=== PATIENT | male | born 1950 | race Caucasian/White ===

== ENCOUNTER 2016-09-08 14:01 | Emergency (ER) | payer OTHER, BC ==
[~2016-09-08] VITALS: Ht 177.8 cm; Wt 99.0 kg
[2016-09-08 14:20] VITALS: TEMP 37.1; Ht 177.8 cm; Wt 99.0 kg
--- NOTE | 2016-09-08 15:05 | DIAGNOSTIC IMAGING REPORT ---
CHEST ONE VIEW PORTABLE CLINICAL HISTORY: sob dyspnea COMPARISON STUDY: No previous studies for comparison. FINDINGS: Mild bibasilar atelectasis. Upper lungs are considered clear. No evidence for cardiac enlargement. IMPRESSION: Mild bibasilar atelectasis. Otherwise negative chest Electronically signed by: Guanako Barton M.D. 09/08/2016 3:04 PM Dictated Date/Time: 09/08/2016 3:03 PM
[2016-09-08 15:08] LABS: COMPLETE YES; EOS % 0.2 %; HEMATOCRIT 41.6 % (42-52); IG% 0.2 %; LYMPH % 5.1 %; LYMPH ABS # 0.34 K/uL (1.2-3.4); MEAN CELL VOLUME 86.8 fL (80-100); MEAN CORPUSCULAR HEMOGLOBIN 29.6 pg (25-34); MEAN CORPUSCULAR HGB CONC 34.1 g/dl (32-36); MEAN PLATELET VOLUME 10.5 fL (7.4-10.4); MONO % 1.4 %; NEUT % 93.1 %; PLATELET COUNT 157 K/uL (130-400); RED BLOOD COUNT 4.79 M/uL (4.7-6.1); WHITE BLOOD COUNT 6.63 K/uL (4.8-10.8)
[2016-09-08] MEDS ORDERED: SIMV40TA2 PO (15:16)
[2016-09-08] MEDS ORDERED: MULT-513 PO (15:16)
[2016-09-08 15:18] LABS: INR 1.1 (0.9-1.1); PARTIAL THROMBOPLASTIN RATIO 1.3; PROTHROMBIN TIME (PATIENT) 11.5 SECONDS (9.0-12.0)
[2016-09-08 15:26] LABS: BUN/CREATININE RATIO 13.5 (10-20); CALCIUM 7.7 mg/dl (8.5-10.1); CREATININE 0.91 mg/dl (0.60-1.40); POTASSIUM 4.5 mmol/L (3.5-5.1)
[2016-09-08 15:28] LABS: ALB/GLOB RATIO 1.3 (0.9-2)
[2016-09-08 15:38] VITALS: O2SAT 95
[2016-09-08] MEDS ORDERED: OPTIRAY 320 IV PRN (16:15)
--- NOTE | 2016-09-08 16:17 | DIAGNOSTIC IMAGING REPORT ---
CT ANGIOGRAM OF THE CHEST CLINICAL HISTORY: Chest pain. Recent surgical history. COMPARISON STUDY: Chest x-ray dated 09/06/2016 TECHNIQUE: Following the IV administration of 93 mL of Optiray-320, CT angiogram of the thorax was performed from the thoracic inlet to the lung bases utilizing the pulmonary embolus protocol. Images are reviewed in the axial, sagittal, and coronal planes. IV contrast was administered without complication. MIP imaging was performed. CT DOSE: 553.31 mGy.cm FINDINGS: No pathologically enlarged axillary mediastinal or hilar lymph nodes were visualized. There was no evidence of thoracic aortic dilatation. There were no pulmonary artery filling defects to indicate acute pulmonary embolism. No pleural effusions are visualized. There is extensive bilateral lower lobe atelectasis/consolidation. There are air bubbles in the region of the right shoulder, presumably related to recent surgery. IMPRESSION: 1. No CT evidence of acute pulmonary embolism 2. Low lung volumes with moderately extensive bilateral lower lobe atelectasis/consolidation 3. Air bubbles in the right shoulder region, likely postsurgical. Electronically signed by: Edgar Rowe M.D. 09/08/2016 4:16 PM Dictated Date/Time: 09/08/2016 4:12 PM
[2016-09-08] MEDS ORDERED: PERCOCET HOME PACK PO ONE (18:45)
[2016-09-08] MEDS ORDERED: ONDANSETRON HOME PACK 4MG OD TAB PO ONE (18:45)
--- NOTE | 2016-09-08 18:46 | EMERGENCY ROOM VISIT NOTE ---
History Report prepared by Antonio: Leida Torres Under the Supervision of: Dr. Anjum Manzano M.D. First contact with patient: 14:49 Chief Complaint: SHORTNESS OF BREATH Stated Complaint: LOW SPO2 Nursing Triage Summary: Pt arrives ALS for evaluation of sudden onset of right sided heaviness, sob after receiving nerve block to right shoulder, pt taken into OR. SOB continues pt brought from [facility] to [facility]. History of Present Illness The patient is a 65 year old male who presents to the Emergency Room with complaints of persistent shortness of breath starting earlier today. The patient was getting surgery on his shoulder at [facility] when prior to the procedure, he began to feel short of breath. After the surgery, the patient was found to by hypoxic and sent to the ED. The patient denies having any chest pain, abdominal pain, or having any swelling in his legs. He denies any history of lung problems, kidney problems, or recent accidents or falls. He is a former smoker. He reports that he had a long car trip recently. Source of History: patient Onset: earlier today Position: other (global) Quality: other (SOB) Timing: other (persistent) Associated Symptoms: No abdominal pain, No chest pain Note: Pt denies swelling in the legs. Review of Systems See HPI for pertinent positives & negatives. A total of 10 systems reviewed and were otherwise negative. Past Medical & Surgical Surgical Problems: (1) History of shoulder surgery Family History Patient reports no known family medical history. Social History Smoking Status: Former Smoker Marital Status: Housing Status: lives with family Occupation Status: retired Current/Historical Medications Scheduled Multivitamins/Minerals (Mvi With Minerals), 1 TAB PO DAILY Simvastatin (Zocor), 40 MG PO QPM Allergies Coded Allergies: No Known Allergies (Verified , 08/02/02) Physical Exam Vital Signs Date Time Temp Pulse Resp B/P Pulse Ox O2 Delivery O2 Flow Rate FiO2 09/08/16 19:05 77 18 142/92 90 09/08/16 18:00 78 18 132/68 91 Room Air 09/08/16 16:15 87 Room Air 09/08/16 16:15 84 22 120/72 87 09/08/16 15:38 95 Nasal Cannula 2.0 09/08/16 14:22 Nasal Cannula 2.0 09/08/16 14:20 37.1 80 20 133/72 91 Room Air 09/08/16 14:14 77 Physical Exam GENERAL: Patient is well appearing and in minimal distress. HEENT: No acute trauma, normocephalic atraumatic, mucous membranes moist, no nasal congestion, no scleral icterus. NECK: No stridor, no adenopathy, no meningismus, trachea is midline. LUNGS: No dyspnea. Clear to auscultation and equal bilaterally. No wheeze, no rhonchi. HEART: Regular rate and rhythm. No murmurs, rubs, gallops appreciated. ABDOMEN: Soft, nontender, bowel sounds positive, no masses appreciated, no peritonitis. BACK: No midline tenderness, no CVA tenderness EXTREMITIES: Right arm in sling, heavily bandaged right shoulder with Betadine on surrounding skin, no cyanosis. NEUROLOGIC: Alert and oriented, no acute motor deficits, no focal weakness, cranial nerves grossly intact. Mild sensation in distal right hand. SKIN: No rash, no jaundice, no diaphoresis. Medical Decision & Procedures ER Provider Diagnostic Interpretation: X ray results are stated below per my interpretation and the radiologist's interpretation. Radiology results and stated below per my review and radiologist interpretation: CHEST ONE VIEW PORTABLE CLINICAL HISTORY: sob dyspnea COMPARISON STUDY: No previous studies for comparison. FINDINGS: Mild bibasilar atelectasis. Upper lungs are considered clear. No evidence for cardiac enlargement. IMPRESSION: Mild bibasilar atelectasis. Otherwise negative chest Electronically signed by: Guanako Barton M.D. 09/08/2016 3:04 PM Dictated Date/Time: 09/08/2016 3:[address] ANGIOGRAM OF THE CHEST CLINICAL HISTORY: Chest pain. Recent surgical history. COMPARISON STUDY: Chest x-ray dated 09/06/2016 TECHNIQUE: Following the IV administration of 93 mL of Optiray-320, CT angiogram of the thorax was performed from the thoracic inlet to the lung bases utilizing the pulmonary embolus protocol. Images are reviewed in the axial, sagittal, and coronal planes. IV contrast was administered without complication. MIP imaging was performed. CT DOSE: 553.31 mGy.cm FINDINGS: No pathologically enlarged axillary mediastinal or hilar lymph nodes were visualized. There was no evidence of thoracic aortic dilatation. There were no pulmonary artery filling defects to indicate acute pulmonary embolism. No pleural effusions are visualized. There is extensive bilateral lower lobe atelectasis/consolidation. There are air bubbles in the region of the right shoulder, presumably related to recent surgery. IMPRESSION: 1. No CT evidence of acute pulmonary embolism 2. Low lung volumes with moderately extensive bilateral lower lobe atelectasis/consolidation 3. Air bubbles in the right shoulder region, likely postsurgical. Electronically signed by: Edgar Rowe M.D. 09/08/2016 4:16 PM Dictated Date/Time: 09/08/2016 4:12 PM Laboratory Results 09/08/16 14:55 Red Blood Count 4.79, Mean Corpuscular Volume 86.8, Mean Corpuscular Hemoglobin 29.6, Mean Corpuscular Hemoglobin Concent 34.1, Mean Platelet Volume 10.5, Neutrophils (%) (Auto) 93.1, Lymphocytes (%) (Auto) 5.1, Monocytes (%) (Auto) 1.4, Eosinophils (%) (Auto) 0.2, Basophils (%) (Auto) 0.0, Neutrophils # (Auto) 6.18, Lymphocytes # (Auto) 0.34, Monocytes # (Auto) 0.09, Eosinophils # (Auto) 0.01, Basophils # (Auto) 0.00 09/08/16 14:55 Test 09/08/16 14:55 White Blood Count 6.63 K/uL (4.8-10.8) Red Blood Count 4.79 M/uL (4.7-6.1) Hemoglobin 14.2 g/dL (14.0-18.0) Hematocrit 41.6 % (42-52) Mean Corpuscular Volume 86.8 fL (80-100) Mean Corpuscular Hemoglobin 29.6 pg (25-34) Mean Corpuscular Hemoglobin Concent 34.1 g/dl (32-36) Platelet Count 157 K/uL (130-400) Mean Platelet Volume 10.5 fL (7.4-10.4) Neutrophils (%) (Auto) 93.1 % Lymphocytes (%) (Auto) 5.1 % Monocytes (%) (Auto) 1.4 % Eosinophils (%) (Auto) 0.2 % Basophils (%) (Auto) 0.0 % Neutrophils # (Auto) 6.18 K/uL (1.4-6.5) Lymphocytes # (Auto) 0.34 K/uL (1.2-3.4) Monocytes # (Auto) 0.09 K/uL (0.11-0.59) Eosinophils # (Auto) 0.01 K/uL (0-0.5) Basophils # (Auto) 0.00 K/uL (0-0.2) RDW Standard Deviation 40.9 fL (36.4-46.3) RDW Coefficient of Variation 12.8 % (11.5-14.5) Immature Granulocyte % (Auto) 0.2 % Immature Granulocyte # (Auto) 0.01 K/uL (0.00-0.02) Prothrombin Time 11.5 SECONDS (9.0-12.0) Prothromb Time International Ratio 1.1 (0.9-1.1) Activated Partial Thromboplast Time 35.0 SECONDS (21.0-31.0) Partial Thromboplastin Ratio 1.3 Anion Gap 5.0 mmol/L (3-11) Est Creatinine Clear Calc Drug Dose 92.9 ml/min Estimated GFR () 100.7 Estimated GFR (Non- 86.9 BUN/Creatinine Ratio 13.5 (10-20) Calcium Level 7.7 mg/dl (8.5-10.1) Total Bilirubin 0.2 mg/dl (0.2-1) Aspartate Amino Transf (AST/SGOT) 18 U/L (15-37) Alanine Aminotransferase (ALT/SGPT) 29 U/L (12-78) Alkaline Phosphatase 68 U/L (45-117) Troponin I < 0.015 ng/ml (0-0.045) Total Protein 6.0 gm/dl (6.4-8.2) Albumin 3.4 gm/dl (3.4-5.0) Globulin 2.6 gm/dl (2.5-4.0) Albumin/Globulin Ratio 1.3 (0.9-2) Laboratory results as reviewed by me. ECG Indication: SOB/dyspnea Rate (beats per minute): 82 Rhythm: normal sinus Findings: ST depression (nonspecific), no ectopy, other (no STEMI) ED Course 1502: The patient was evaluated in room B3A. A complete history and physical exam was performed. 1543: I reevaluated the patient. He is feeling better. 1619: I reevaluated the patient. Nursing tried putting the patient on room air. His oxygen desaturated to 87% while laying in bed. 1634: I discussed the patient's case with VERITO Collazo - hospitalist. He requests that the patient be observed further in the ED. 1648: I reevaluated the patient. He will try the incentive spirometer. 181: I reevaluated the patient. His oxygen saturation is 88%. He will try walking around. 1835: I reevaluated the patient. His O2 sat is now 90%. He notes that his oxygen might always be low. I discussed results and discharge instructions: He verbalized understanding and agreement. The patient is ready for discharge. 1845: Ondansetron HCl 1 homepack PO, Oxycodone/Acetaminophen 2 homepack PO. Medical Decision Differential: Infectious, Reactive Airway Disease, Pneumonia, Pneumothorax, COPD , CHF, ACS, Pulmonary Embolism, MSK, GI, Dissection, amongst other etiologies entertained. 65 yr old male with mild hypoxia post surgery. Notes started around time of sedative and right brachial nerve block. Mild shortness of breath initially though here he is completely asymptomatic and feeling well. Stable other than initial O2 hovering 87%. He admits over a year of respiratory issues that he has been following with PCP about. CT done given normal everything revealing atelectasis vs consolidation bilateral lower lobes. He is afebrile without shob nor cough nor elevated WBC. He had no symptoms prior to this. He is breathing comfortably and happy. After prolonged monitoring, incentive spirometry and walking around department he is feeling fine. O2 stable at around 92% on RA with periodic drops briefly to 87 and sometimes to mid 90s. He wishes to go home. I suspect that this is due to his already tenuous repiratory status that he describes over the last year worsened by the sedation today leading to significant atelectasis. I do not feel it is infectious and he agrees. There is no evidence of copd, chf, acs, pe, dissection. He is happy and wishes to go home. Will be with and symptoms requiring return discussed with him. Unable to fill rx for pain meds post surg thus given to go percocet. Stable and feeling well at discharge. To follow up with PCP tomorrow. Consults Time Called: 1623 Consulting Physician: KATIE Collazo - hospitalist Returned Call: [phone] I discussed the patient's case with him. He requests that the patient be observed further in the ED. Impression Primary Impression: Postoperative hypoxia Additional Impression: Atelectasis Scribe Attestation The scribe's documentation has been prepared under my direction and personally reviewed by me in its entirety. I confirm that the note above accurately reflects all work, treatment, procedures, and medical decision making performed by me. Departure Information Dispostion Home / Self-Care Referrals No Doctor, Assigned (PCP) Patient Instructions ED Dyspnea Shortness of Breath, My [facility] Additional Instructions Follow up with your primary provider in next 24-48 hours. Return immediately if you feel short of breath. You have received a narcotic pain medication. These medications may cause drowsiness and should not be used with other sedative medications. Do not drive , drink alcohol, perform dangerous activities, nor make important decisions after taking these medications. adjunct faculty for medical terminology use or inappropriate use may lead to addiction. Problem Qualifiers
[2016-09-08 19:05] VITALS: BP 142/92; PULSE 77; O2SAT 90
== END 2016-09-08 19:05 | disposition home or self-care (01) ==
LOC: EDBD 14:01 → C.EDB 14:02
DX: J98.11 Atelectasis (principal); R09.02 Hypoxemia; Z98.890 Other specified postprocedural states; Z87.891 Personal history of nicotine dependence